=== PATIENT | male | born 1935 | race Caucasian/White ===

== ENCOUNTER 2018-12-21 22:26 | Inpatient (IN) | payer MEDICARE ==
[~2018-12-21] VITALS: Ht 167.6 cm; Wt 74.8 kg
--- NOTE | 2018-12-21 22:31 | NUR ---
[id number] FROM HOME C/O N/V WITH ABD PAIN X 3 HOURS.
--- NOTE | 2018-12-21 22:33 | NUR ---
PT PLACED IN GOWN AND ON ACCOUNTS RECEIVABLE SPECIALIST. VSS/RESP EVEN UNLABORED/NAD NOTED/SKIN WARM AND DRY/AFEBRILE/AOX4. AWAITNG MD AGUERO.
--- NOTE | 2018-12-21 22:35 | NUR ---
AT BEDSIDE FOR EVAL.
--- NOTE | 2018-12-21 22:42 | NUR ---
PATIENT TO CT VIA STRETCHER.
[2018-12-21] MEDS ORDERED: ONDANSETRON HCL/PF 4 MG/2 ML VIAL ONE (22:48)
[2018-12-21] MEDS ORDERED: MORPHINE SULFATE INJ 4 MG/ML DISP.SYRIN ONE (22:49)
--- NOTE | 2018-12-21 22:52 | NUR ---
PATIENT BACK FROM CT.
--- NOTE | 2018-12-21 22:55 | NUR ---
20G IV TO L AC X 1 ATTEMPT USING ASEPTIC TECH, BLOOD HANDED OVER TO THE LAB AT BEDSIDE. IV FLUSHES EASILY WITH NS, NO S/S INFILTRATION NOTED AT THIS TIME.
[2018-12-21] MEDS ORDERED: ONDANSETRON HCL/PF 4 MG/2 ML VIAL IVP ONE (23:00)
[2018-12-21] MEDS ORDERED: IV NS 0.9% 500 ML BAG IV ONE (23:00)
[2018-12-21] MEDS ORDERED: MORPHINE SULFATE INJ 2 MG/ML DISP.SYRIN IV ONE (23:00)
[2018-12-21 23:05] LABS: BASOPHILS # (AUTO) 0.1 /CMM (0.0-0.2); BASOPHILS % (AUTO) 0.4 % (0.0-2.0); EOSINOPHILS % (AUTO) 1.1 % (0.0-6.0); HEMATOCRIT 47 % (39-51); HEMOGLOBIN 15.8 g/dL (13.5-17.5); LYMPHOCYTES # (AUTO) 1.7 /CMM (0.8-4.8); LYMPHOCYTES % (AUTO) 12.3 % (20.0-44.0); MEAN CORPUSCULAR HGB CONC 34 g/dl (31.0-36.0); MEAN CORPUSCULAR VOLUME 88 fL (80-96); MONOCYTES % (AUTO) 7.2 % (2.0-12.0); NEUTROPHILS # (AUTO) 11.2 /CMM (1.8-8.9); PLATELET COUNT (AUTO) 190 /CMM (150-450); RED BLOOD CELL COUNT(AUTO) 5.33 MIL/uL (4.5-6.0); WHITE BLOOD COUNT (AUTO) 14.2 K/uL (4.3-11.0)
[2018-12-21 23:16] LABS: ALANINE AMINOTRANSFERASE 32 U/L (12-78); ALBUMIN 4.5 g/dL (3.4-5.0); ALKALINE PHOSPHATASE 96 U/L (46-116); ASPARTATE AMINOTRANSFERASE 31 U/L (15-37); BILIRUBIN,DIRECT 0.2 mg/dL (0.0-0.2); BILIRUBIN,TOTAL 0.8 mg/dL (0.2-1.0); CALCIUM, SERUM 9.7 mg/dL (8.5-10.1); CARBON DIOXIDE 29 mmol/L (21-32); CHLORIDE 103 mmol/L (98-107); CREATININE 1.6 mg/dL (0.6-1.3); GLUCOSE 173 mg/dL (74-106); LIPASE 330 U/L (73-393); POTASSIUM 3.8 mmol/L (3.5-5.1); SODIUM SERUM 142 mmol/L (136-145); TOTAL PROTEIN, SERUM 7.7 g/dL (6.4-8.2); UREA NITROGEN, BLOOD 32 mg/dL (7-18)
--- NOTE | 2018-12-21 23:26 | NUR ---
CALLED FOR CT READ.
[2018-12-21] MEDS ORDERED: ONDANSETRON HCL/PF 4 MG/2 ML VIAL IV ONE (23:30)
[2018-12-21] MEDS ORDERED: HYDROMORPHONE 1 MG/1 ML DISP.SYRIN ONE (23:30)
[2018-12-21] MEDS ORDERED: HYDROMORPHONE INJ 0.5 MG/0.5 ML SYRINGE IV ONE (23:30)
[2018-12-22] VITALS (7 sets, daily range): BP systolic 136–168; BP diastolic 84–100
[2018-12-22] MEDS ORDERED: TIMO5SOL11 EACHEYE ×2 (00:40→00:42)
[2018-12-22] MEDS ORDERED: METO25TA6 PO (00:44)
[2018-12-22] MEDS ORDERED: COLC0.6C3 PO (00:45)
[2018-12-22] MEDS ORDERED: ASPI-1152 PO (00:46)
[2018-12-22] MEDS ORDERED: CALC-883 PO (00:47)
[2018-12-22] MEDS ORDERED: OMEG-105 PO (00:48)
[2018-12-22] MEDS ORDERED: MULT-479 GT (00:49)
[2018-12-22] MEDS ORDERED: BIOF1TAB7 PO (00:49)
[2018-12-22] MEDS ORDERED: RANI150T8 PO (00:50)
[2018-12-22] MEDS ORDERED: DEXT15DR6 OP (00:51)
[2018-12-22] MEDS ORDERED: HYDR12.5 PO (00:52)
[2018-12-22] MEDS ORDERED: CLOP75TA15 PO (00:53)
[2018-12-22] MEDS ORDERED: TYL2T MC (00:53)
[2018-12-22] MEDS ORDERED: ALIR75PE SQ (00:55)
--- NOTE | 2018-12-22 00:55 | NUR ---
DR PITT CALLED AND SPOKE WITH Carol Ann MIX
--- NOTE | 2018-12-22 01:01 | NUR ---
PATIENT RESTING QUIETLY, AT BEDSIDE. RESP EVEN UNLABORED/NAD NOTED/VSS.
--- NOTE | 2018-12-22 01:08 | NUR ---
CALLED FOR MED-SURGE BED, TURNED IN MOVE SHEET.
--- NOTE | 2018-12-22 01:24 | NUR ---
PATIENT UNABLE TO GIVE URINE SPECIMEN AT THIS TIME, MD AWARE.
--- NOTE | 2018-12-22 01:25 | NUR ---
MED-SURGE BED 327-2
--- NOTE | 2018-12-22 01:46 | NUR ---
REPORT GIVEN TO AUGUST ROCHA FOR PAULETTE. PATIENT TBA 237-B.
--- NOTE | 2018-12-22 02:26 | NUR ---
PATIENT TRANSPORTED VIA STRETCHER TO M/S 327-2 WITH EMT. ANANTHS.
[2018-12-22] MEDS ORDERED: ONDANSETRON HCL/PF 4 MG/2 ML VIAL IVP PRN (02:30)
[2018-12-22] MEDS ORDERED: IV D5/0.45 NACL 1,000 ML IV PRN (02:30)
--- NOTE | 2018-12-22 02:35 | NUR ---
ADMISSION 83 years old male admitted for Volvulus. Patient is A/O x 4 , BP elevated 164/100 patient reports abdominal pain 10/10, mild nausea no vomiting. Abdomen tender, skin intact. Orientation to room, staff, unit. Instruction to use call light for assistance, verbalized understanding. Brandi at bedside.
[2018-12-22] MEDS: MORPHINE SULFATE INJ 2 MG/ML DISP.SYRIN IV PRN ×3 (02:59→13:20)
--- NOTE | 2018-12-22 06:22 | NUR ---
END OF SHIFT REPORT Patient in bed. Stable oxygen saturation on RA. NPO, IVF infusing maintained at 75 ml/hr. Abdomen diaper machine tender, no BM this shift, reports passing gas. Given PRN Morphine with intermittent relief, denies nausea, no vomiting. Instruction to use call light for assistance, verbalized understanding.
--- NOTE | 2018-12-22 07:25 | NUR ---
MS RN OPENING NOTES RECEIVED PT RESTING IN BED. AWAKE A/O X4. TOLERATING RA, WITH NO ACUTE RESPIRATORY DISTRESS NOTED. IVF D5 1/2 NS AT 75ML/HR TO LAC G20, INTACT AND FLUID INFUSING WELL. PT STATED HAS LOWER ABDOMINAL PAIN DUE TO BLADDER FEELS FULL. STATING AND REQUESTING FOR IN AND OUT CATH. PT ADDED HE USUALLY DOES IT HENEVER HE CAN'T PEE DUE TO RECENT USAGE OF MORPHINE. RN TO INFORM WHIZZER AP. PT KEPT COMFORTABLE. PT'S BED IN LOWEST, LOCKED POSITION WITH SR X2. CALL LIGHT AND FLUID WITHIN REACH WILL CONTINUE PLAN OD CARE.
--- NOTE | 2018-12-22 07:58 | NUR ---
RN NOTES IN AND OUT CATH WAS DONE PER PT'S REQUEST. NO OUTPUT RESULTED. PT AWARE AND STATING THE HIS BLADDER IS ALREADY RUPTURED. AT BEDISDE SAYING IT IS AN EMERGENCY.RN/MILENA NOTIFIED CN/TUYET. WEIGHT LOSS SALES CONSULTANT AP MADE AWARE.
--- NOTE | 2018-12-22 08:23 | NUR ---
RN NOTES YARD RIGGER AP INFORMED, NO NEW ORDERS NOTED. YARD RIGGER AP STATED WILL SEE PT TODAY. BEDSIDE MADE AWARE AND OKAY WITH IT. PT STILL PREFERS CATH TO BE IN AT THIS TIME. WILL CONTINUE TO MONITOR.
[2018-12-22] MEDS ORDERED: PANTOPRAZOLE 40 MG VIAL IV SCH (09:00)
[2018-12-22] MEDS ORDERED: MORPHINE SULFATE INJ 4 MG/ML DISP.SYRIN IV PRN (15:00)
[2018-12-22] MEDS ORDERED: hydrALAZINE HCL IV 20 MG VIAL IV ONE (17:15)
[2018-12-22] MEDS ORDERED: MORPHINE SULFATE INJ 4 MG/ML DISP.SYRIN IV ONE (18:00)
--- NOTE | 2018-12-22 18:25 | NUR ---
MS MANAGER WATER NOTES PT TO DISCHARGE TO [facility] PER DR. PITT/ MARBLE MACHINE OPERATOR AP. REPORT GIVEN TO MARIBEL. PT A/O X4/ TOLERATING RA, WITH NO ACUTE RESPIRATORY DISTRESS NOTED. PAIN MEDICATION MORPHINE SULFATE AROUND 1815 BEFORE PT LEFT THE UNIT. PT ALSO HAD HYDRALAZINE 10MG IV X1 DOSE, DUE TO SBP 168. BP RECHECKED WENT DOWN TO BP 141/69. VITALS STABLE BEFORE PT LEFT THE UNIT. DISCHARGE PAPERS AND INVENTORY LIST REVIEWED AND SIGNED BY /PARVEZ PRESENT BEDSIDE. NO BELONGINGS MISSING. CD FOR IMAGING RESULT GIVEN WELL ON THE PACKET. SKIN INTACT, NO RECENT PICTURES TAKEN. ALL NEEDS AND CARE PROVIDED. PT TRANSPORTED VIA GURNEY WITH 2EMTS AND /PARVEZ. PT LEFT THE UNIT AT 1820. CN/TUYET AND MARBLE MACHINE OPERATOR/ AP AWARE OF DISCHARGE.
== END 2018-12-22 18:25 | disposition short-term general hospital (02) | DRG 391 ==
LOC: ER 22:28 → MED 12-22 02:08
PROVIDERS: ADMIT Hospitalist; ATTEND Hospitalist
DX: K31.89 Other diseases of stomach and duodenum (principal); N17.0 Acute kidney failure with tubular necrosis; K86.1 Other chronic pancreatitis; K31.1 Adult hypertrophic pyloric stenosis; E86.9 Volume depletion, unspecified; I10 Essential (primary) hypertension; K21.9 Gastro-esophageal reflux disease without esophagitis; Z95.2 Presence of prosthetic heart valve; Z95.5 Presence of coronary angioplasty implant and graft; K44.9 Diaphragmatic hernia without obstruction or gangrene; Z95.0 Presence of cardiac pacemaker; D72.829 Elevated white blood cell count, unspecified
CPT/HCPCS: 36415; 71045-TC; 80048-TC; 80076-TC; 83605-TC; 83690-TC; 85025-TC; 85610-TC; 86850-TC; 87081-TC; C9113; G0378; J0360; J1170; J2270; J2405; J3490; J7040